=== PATIENT | female | born 1950 | race African-American/Black ===

== ENCOUNTER 2020-07-10 23:04 | Observation (INO) ==
[2020-07-10] MEDS ORDERED: SODIUM CHLORIDE 0.9% 1,000 ML IV STA (23:35)
[2020-07-10 23:44] LABS: Basophils % 0.3 % (0.0-0.8); Eosinophils % 0.3 % (0.00-10.9); Hematocrit 18.8 VOL% (35.7-47.0); Immature Granulocytes % 1.3 %; Immature Granulocytes Absolute 0.04 #; Lymphocytes # 0.3 10*3/uL (1.4-4.0); Mean Corpuscular HGB Conc 31.9 GM/DL (32-36); Mean Corpuscular Volume 89.5 FL (87-102); Mean Platelet Volume 11.2 FL (9.6-12.0); Monocytes % 5.5 % (1.7-12.7); Neutrophils % 83.6 % (38.7-73.9); Platelet Count 252 T/CUMM (130-400); Red Cell Distribution Width 14.2 % (9.3-17.3); White Blood Count 3.1 T/CUMM (4-12)
[2020-07-10 23:54] LABS: Albumin 1.4 G/DL (3.4-5.0); Bilirubin,Total 1.5 MG/DL (0.2-1.0); Calcium 8.9 MG/DL (8.5-10.1); Osmolality,Calculated 281.9 MOS/KG (273-304); Total Protein 6.8 G/DL (6.4-8.3)
[2020-07-11 00:06] LABS: Eosinophils 2 % (0-10); Hypochromasia 1+; Lymphocytes 9 % (20-55); Platelet Estimate Normal; Segmented Neutrophils 87 % (50-85); Total Cells Counted 100
[2020-07-11] MEDS ORDERED: ACETAMINOPHEN 325 MG TABLET PO PRN (00:53)
[2020-07-11] MEDS ORDERED: GLUCAGON 1 MG VIAL IM PRN ×2 (00:53)
[2020-07-11] MEDS ORDERED: DEXTROSE 50% 25 GM/50 ML VIAL IV PRN ×2 (00:53)
[2020-07-11] MEDS ORDERED: ONDANSETRON 4 MG/2 ML VIAL IV PRN (00:53)
[2020-07-11 00:54] LABS: Amorphous Crystals,Urine Occasional /HPF (Few); Apearance,Urine Slightly Hazy (Clear); Bacteria,Urine Occasional /HPF (Few); Bilirubin,Urine Negative (Negative); Blood, Urine Large mg/dL (Negative); Glucose,Urine (UA) Negative (Negative); Ketones,Urine Negative (Negative); Mucus,Urine Occasional /LPF (Occasional); Nitrite,Urine Negative (Negative); Protein,Urine Negative; RBC,Urine 172 /HPF (0-4); Squamous Epithelial Cell,Urine Occasional /HPF (0-10); Urine Color Amber (Yellow); Urine Specific Gravity 1.016 (1.001-1.035); WBC,Urine 12 /HPF (0-6)
[2020-07-11] MEDS ORDERED: SODIUM CHLORIDE 0.9% 1,000 ML IV PRN (00:58)
[2020-07-11] MEDS: INSULIN LISPRO 100 UNIT/ML SUBCUT SCH ×4 (09:24→20:22)
[2020-07-11 12:06] LABS: Hematocrit 26.4 VOL% (35.7-47.0); Hemoglobin 8.7 GM/DL (12.0-16.0)
[2020-07-11] MEDS: SODIUM CHLORIDE 0.9% 1,000 ML IV SCH ×2 (20:23)
[2020-07-11] MEDS: VANCOMYCIN 50 MG/ML 60 ML/BOTTLE PO SCH (23:14)
[2020-07-12] MEDS: VANCOMYCIN 50 MG/ML 60 ML/BOTTLE PO SCH ×4 (05:04→23:17)
[2020-07-12 05:56] LABS: Basophils % 0.6 % (0.0-0.8); Eosinophils % 0.3 % (0.00-10.9); Hematocrit 25.2 VOL% (35.7-47.0); Hemoglobin 8.2 GM/DL (12.0-16.0); Immature Granulocytes % 2.1 %; Immature Granulocytes Absolute 0.07 #; Lymphocytes # 0.4 10*3/uL (1.4-4.0); Lymphocytes % 10.7 % (21.3-54.2); Mean Corpuscular HGB Conc 32.5 GM/DL (32-36); Mean Corpuscular Volume 87.8 FL (87-102); Mean Platelet Volume 10.3 FL (9.6-12.0); Monocytes % 6.1 % (1.7-12.7); Neutrophils % 80.2 % (38.7-73.9); Platelet Count 237 T/CUMM (130-400); Red Blood Count 2.87 MC/CUMM (3.8-5.5); Red Cell Distribution Width 15.5 % (9.3-17.3); White Blood Count 3.3 T/CUMM (4-12)
[2020-07-12 06:13] LABS: Albumin 1.2 G/DL (3.4-5.0); Bilirubin,Total 1.2 MG/DL (0.2-1.0); Calcium 8.3 MG/DL (8.5-10.1)
[2020-07-12 06:23] LABS: Band Neutrophils 1 % (0-10); Lymphocytes 6 % (20-55); Platelet Estimate Adequate; Segmented Neutrophils 89 % (50-85); Total Cells Counted 100
[2020-07-12 06:24] LABS: Burr Cells Slight; Hypochromasia 1+; Microcytosis 1+; Ovalocytes Slight
[2020-07-12] MEDS: INSULIN LISPRO 100 UNIT/ML SUBCUT SCH ×4 (09:18→20:25)
[2020-07-12] MEDS: SODIUM CHLORIDE 0.9% 1,000 ML IV SCH (21:50)
[2020-07-13] MEDS: VANCOMYCIN 50 MG/ML 60 ML/BOTTLE PO SCH ×2 (05:58→13:32)
[2020-07-13] MEDS: INSULIN LISPRO 100 UNIT/ML SUBCUT SCH ×2 (09:54→13:29)
[2020-07-13 14:06] VITALS: BP 140/74
== END 2020-07-13 16:32 | disposition home health service (06) ==
LOC: EDUNIT# → EDBD → N.EDINP 23:04 → N.ED 23:04 → SUATTDRO 07-11 00:53 → N.4E 07-11 03:29
PROVIDERS: ADMIT Internal Medicine; ATTEND Internal Medicine

== ENCOUNTER 2020-08-24 16:12 | Inpatient (IN) ==
[2020-08-24 17:44] LABS: Basophils % 0.1 % (0.0-0.8); Eosinophils % 0.2 % (0.00-10.9); Immature Granulocytes % 1.4 %; Immature Granulocytes Absolute 0.22 #; Lymphocytes # 0.6 10*3/uL (1.4-4.0); Lymphocytes % 3.9 % (21.3-54.2); Mean Corpuscular HGB Conc 30.8 GM/DL (32-36); Mean Corpuscular Volume 95.6 FL (87-102); Mean Platelet Volume 9.4 FL (9.6-12.0); Monocytes % 3.8 % (1.7-12.7); NRBC # 0.03 10*3/uL; Neutrophils % 90.6 % (38.7-73.9); Platelet Count 454 T/CUMM (130-400); Red Blood Count 1.36 MC/CUMM (3.8-5.5); Red Cell Distribution Width 18.1 % (9.3-17.3)
[2020-08-24 18:01] LABS: Albumin 1.4 G/DL (3.4-5.0); Bilirubin,Total 1.3 MG/DL (0.2-1.0); Calcium 8.7 MG/DL (8.5-10.1); Osmolality,Calculated 292.5 MOS/KG (273-304); Total Protein 7.1 G/DL (6.4-8.3)
[2020-08-24 18:17] LABS: Bilirubin,Urine Negative (Negative); Blood, Urine Small mg/dL (Negative); Glucose,Urine (UA) Negative (Negative); Ketones,Urine Negative (Negative); Nitrite,Urine Negative (Negative); Protein,Urine 30 MG/DL; RBC,Urine 62 /HPF (0-4); Squamous Epithelial Cell,Urine Occasional /HPF (0-10); Urine Appearance CLOUDY (Clear); Urine Color Yellow (Yellow); Urine Specific Gravity 1.016 (1.001-1.035); Urine Urobilinogen < 2.0 EU/DL (0.2-1.0); WBC,Urine 3 /HPF (0-6)
[2020-08-24] MEDS ORDERED: ONDANSETRON 4 MG/2 ML VIAL IV STA (18:25)
[2020-08-24] MEDS ORDERED: SODIUM CHLORIDE 0.9% 1,000 ML IV STA (18:25)
[2020-08-24] MEDS ORDERED: PANTOPRAZOLE 40 MG VIAL IV STA (18:25)
[2020-08-24] MEDS ORDERED: cefTRIAXone 1,000 MG in SODIUM CHLORIDE 0.9% 100 ML IV STA (18:33)
[2020-08-24 19:13] LABS: Anisocytosis Slight; Hypochromasia 1+; Polychromasia Few
[2020-08-24 19:14] LABS: Platelet Estimate Adequate
[2020-08-24] MEDS ORDERED: ACETAMINOPHEN 325 MG TABLET PO PRN (20:37)
[2020-08-24] MEDS ORDERED: DEXTROSE 50% 25 GM/50 ML VIAL IV PRN ×2 (20:37)
[2020-08-24] MEDS ORDERED: ONDANSETRON 4 MG/2 ML VIAL IV PRN (20:37)
[2020-08-24] MEDS ORDERED: GLUCAGON 1 MG VIAL IM PRN ×2 (20:37)
[2020-08-24] MEDS ORDERED: SODIUM CHLORIDE 0.9% 1,000 ML IV PRN (20:46)
[2020-08-24] MEDS ORDERED: FUROSEMIDE 20 MG/2 ML VIAL IV PRN (20:46)
[2020-08-24] MEDS ORDERED: DIPHENOXYLATE/ATROPINE 2.5-0.025 MG TABLET PO PRN (20:51)
[2020-08-24] MEDS ORDERED: BRIMONIDINE/TIMOLOL OPH SOLN 5 ML BOTTLE BOTH EYES SCH (21:00)
[2020-08-24 23:35] LABS: Hematocrit 12.9 VOL% (35.7-47.0); Hemoglobin 3.9 GM/DL (12.0-16.0)
[2020-08-25] MEDS: INSULIN LISPRO 100 UNIT/ML SUBCUT SCH ×5 (03:03→20:45)
[2020-08-25] MEDS: SODIUM CHLORIDE 0.9% 1,000 ML IV SCH ×2 (05:36→22:56)
[2020-08-25 08:20] LABS: Basophils % 0.1 % (0.0-0.8); Eosinophils # 0.1 10*3/uL (0.0-0.87); Eosinophils % 0.5 % (0.00-10.9); Hematocrit 20.3 VOL% (35.7-47.0); Immature Granulocytes % 1.4 %; Immature Granulocytes Absolute 0.21 #; Lymphocytes # 1.5 10*3/uL (1.4-4.0); Lymphocytes % 9.7 % (21.3-54.2); Mean Corpuscular Volume 92.7 FL (87-102); Mean Platelet Volume 9.5 FL (9.6-12.0); Monocytes % 7.4 % (1.7-12.7); NRBC # 0.04 10*3/uL; Neutrophils % 80.9 % (38.7-73.9); Platelet Count 387 T/CUMM (130-400)
[2020-08-25 08:30] LABS: Hemoglobin 6.7 GM/DL (12.0-16.0); Red Blood Count 2.19 MC/CUMM (3.8-5.5)
[2020-08-25 08:45] LABS: Albumin 1.3 G/DL (3.4-5.0); Bilirubin,Total 1.8 MG/DL (0.2-1.0); Calcium 8.4 MG/DL (8.5-10.1); Osmolality,Calculated 290.2 MOS/KG (273-304); Total Protein 6.8 G/DL (6.4-8.3)
[2020-08-25] MEDS ORDERED: ATORVASTATIN 20 MG TABLET PO SCH (09:00)
[2020-08-25] MEDS ORDERED: BIMATOPROST 0.01% OPH SOLN 2.5 ML BOTTLE BOTH EYES SCH (09:00)
[2020-08-25] MEDS ORDERED: PANTOPRAZOLE 40 MG VIAL IV SCH (09:00)
[2020-08-25] MEDS: FAMOTIDINE 20 MG TABLET PO SCH (20:41)
[2020-08-25] MEDS ORDERED: cefTRIAXone 1,000 MG in SYRINGE 1 EACH IV SCH (21:00)
[2020-08-25 22:59] LABS: Hematocrit 28.7 VOL% (35.7-47.0)
[2020-08-25 23:05] LABS: Hemoglobin 9.1 GM/DL (12.0-16.0)
[2020-08-26 06:39] VITALS: BP 142/67
[2020-08-26 06:56] LABS: Basophils % 0.3 % (0.0-0.8); Eosinophils # 0.1 10*3/uL (0.0-0.87); Eosinophils % 0.9 % (0.00-10.9); Hematocrit 29.2 VOL% (35.7-47.0); Hemoglobin 9.3 GM/DL (12.0-16.0); Immature Granulocytes % 2.7 %; Immature Granulocytes Absolute 0.34 #; Lymphocytes # 1.4 10*3/uL (1.4-4.0); Lymphocytes % 10.6 % (21.3-54.2); Mean Corpuscular HGB Conc 31.8 GM/DL (32-36); Mean Corpuscular Volume 87.4 FL (87-102); Mean Platelet Volume 9.4 FL (9.6-12.0); Monocytes % 8.4 % (1.7-12.7); NRBC # 0.02 10*3/uL; Neutrophils % 77.1 % (38.7-73.9); Platelet Count 337 T/CUMM (130-400); Red Blood Count 3.34 MC/CUMM (3.8-5.5); Red Cell Distribution Width 19.3 % (9.3-17.3); White Blood Count 12.8 T/CUMM (4-12)
[2020-08-26 07:14] LABS: Albumin 1.3 G/DL (3.4-5.0); Bilirubin,Total 1.4 MG/DL (0.2-1.0); Calcium 8.3 MG/DL (8.5-10.1); Osmolality,Calculated 287.8 MOS/KG (273-304); Total Protein 6.6 G/DL (6.4-8.3)
[2020-08-26] MEDS: INSULIN LISPRO 100 UNIT/ML SUBCUT SCH ×2 (09:00→12:37)
[2020-08-26] MEDS: FAMOTIDINE 20 MG TABLET PO SCH (09:22)
== END 2020-08-26 16:05 | disposition home health service (06) | DRG 811 ==
LOC: EDBD → EDUNIT# → N.ED 16:12 → N.EDINP 20:37 → N.4E 22:18
PROVIDERS: ADMIT Internal Medicine; ATTEND Internal Medicine

== ENCOUNTER 2020-08-31 16:03 | Inpatient (IN) ==
[2020-08-31] MEDS ORDERED: LACTATED RINGERS 1,000 ML IV ONE (16:38)
[2020-08-31 16:45] LABS: Basophils # 0.1 10*3/uL (0.0-0.2); Basophils % 0.3 % (0.0-0.8); Eosinophils # 0.1 10*3/uL (0.0-0.87); Eosinophils % 0.3 % (0.00-10.9); Hematocrit 22.3 VOL% (35.7-47.0); Hemoglobin 7.1 GM/DL (12.0-16.0); Immature Granulocytes % 0.4 %; Immature Granulocytes Absolute 0.07 #; Lymphocytes # 1.3 10*3/uL (1.4-4.0); Lymphocytes % 8.1 % (21.3-54.2); Mean Corpuscular HGB Conc 31.8 GM/DL (32-36); Mean Corpuscular Volume 89.9 FL (87-102); Mean Platelet Volume 9.2 FL (9.6-12.0); Monocytes % 5.5 % (1.7-12.7); Neutrophils % 85.4 % (38.7-73.9); Platelet Count 445 T/CUMM (130-400); Red Blood Count 2.48 MC/CUMM (3.8-5.5); Red Cell Distribution Width 17.9 % (9.3-17.3); White Blood Count 16.1 T/CUMM (4-12)
[2020-08-31 16:59] LABS: PT Patient Result 10.9 SECS (9.8-11.9); Partial Thromboplastin Time 22.8 SECS (23.9-33.8)
[2020-08-31 17:11] LABS: Amorphous Crystals,Urine Occasional /HPF (Few); Bilirubin,Urine Negative (Negative); Blood, Urine Negative (Negative); Glucose,Urine (UA) Negative (Negative); Ketones,Urine Negative (Negative); Nitrite,Urine Negative (Negative); Protein,Urine 30 MG/DL; RBC,Urine 21 /HPF (0-4); Squamous Epithelial Cell,Urine Occasional /HPF (0-10); Urine Appearance Slightly Hazy (Clear); Urine Color Yellow (Yellow); Urine Specific Gravity 1.017 (1.001-1.035); Urine Urobilinogen < 2.0 EU/DL (0.2-1.0); WBC,Urine 2 /HPF (0-6)
[2020-08-31 17:38] LABS: Albumin 1.6 G/DL (3.4-5.0); Bilirubin,Total 1.4 MG/DL (0.2-1.0); Calcium 8.2 MG/DL (8.5-10.1); Osmolality,Calculated 290.8 MOS/KG (273-304); Total Protein 6.3 G/DL (6.4-8.3)
[2020-08-31] MEDS ORDERED: cefTRIAXone 1,000 MG in SODIUM CHLORIDE 0.9% 100 ML IV STA ×2 (19:20→19:49)
[2020-08-31] MEDS ORDERED: MORPHINE 4 MG/1 ML VIAL IV STA (19:24)
[2020-08-31] MEDS ORDERED: ONDANSETRON 4 MG/2 ML VIAL IV STA (19:24)
[2020-08-31] MEDS ORDERED: SODIUM CHLORIDE 0.9% 1,000 ML IV PRN (20:24)
[2020-08-31] MEDS ORDERED: guaiFENesin/DM ER 600-30 MG TABLET PO PRN (20:28)
[2020-08-31] MEDS ORDERED: diphenhydrAMINE CAP 25 MG CAPSULE PO PRN (20:28)
[2020-08-31] MEDS ORDERED: NICOTINE 21 MG/24 HR PATCH TRANSDERM PRN (20:28)
[2020-08-31] MEDS ORDERED: GLUCAGON 1 MG VIAL IM PRN (20:28)
[2020-08-31] MEDS ORDERED: DEXTROSE 50% 25 GM/50 ML VIAL IV PRN (20:28)
[2020-08-31] MEDS ORDERED: ACETAMINOPHEN 325 MG TABLET PO PRN (20:28)
[2020-08-31] MEDS ORDERED: hydrALAZINE 20 MG/1 ML VIAL IV PRN (20:28)
[2020-09-01 07:15] LABS: Basophils # 0.1 10*3/uL (0.0-0.2); Basophils % 0.4 % (0.0-0.8); Eosinophils # 0.1 10*3/uL (0.0-0.87); Eosinophils % 0.3 % (0.00-10.9); Hematocrit 30.1 VOL% (35.7-47.0); Immature Granulocytes % 0.6 %; Immature Granulocytes Absolute 0.12 #; Lymphocytes % 5.5 % (21.3-54.2); Mean Corpuscular HGB Conc 33.6 GM/DL (32-36); Mean Corpuscular Volume 86.5 FL (87-102); Monocytes % 6.5 % (1.7-12.7); Neutrophils % 86.7 % (38.7-73.9); Platelet Count 298 T/CUMM (130-400); Red Blood Count 3.48 MC/CUMM (3.8-5.5); Red Cell Distribution Width 16.9 % (9.3-17.3); White Blood Count 18.8 T/CUMM (4-12)
[2020-09-01 07:16] LABS: Hemoglobin 10.1 GM/DL (12.0-16.0)
[2020-09-01] MEDS ORDERED: MAGNESIUM SULF RIDER 4 GM in PREMIX 1 EACH IV PRN (08:08)
[2020-09-01] MEDS ORDERED: MAGNESIUM SULF RIDER 2 GM in PREMIX 1 EACH IV PRN (08:08)
[2020-09-01] MEDS ORDERED: fentaNYL 12 MCG/HR PATCH TRANSDERM SCH (09:30)
[2020-09-01] MEDS: MORPHINE 4 MG/1 ML VIAL IV PRN ×2 (16:39→20:53)
[2020-09-01] MEDS: MENTHOL/ZINC OXIDE OINT 71 GM JAR TOP SCH (20:11)
[2020-09-02 06:21] LABS: Hematocrit 24.8 VOL% (35.7-47.0); Hemoglobin 8.2 GM/DL (12.0-16.0)
[2020-09-02 06:36] LABS: Calcium 8.6 MG/DL (8.5-10.1); Osmolality,Calculated 287.7 MOS/KG (273-304)
[2020-09-02] MEDS: MORPHINE 4 MG/1 ML VIAL IV PRN (06:39)
[2020-09-02] MEDS ORDERED: SODIUM CHLORIDE 0.9% 1,000 ML IV PRN (09:21)
[2020-09-02] MEDS: MENTHOL/ZINC OXIDE OINT 71 GM JAR TOP SCH (09:23)
[2020-09-02] MEDS ORDERED: HEPARIN LOCK FLUSH 500 UNIT/5 ML SYRINGE IV ONE (14:14)
[2020-09-02 14:43] VITALS: BP 130/75
== END 2020-09-02 14:55 | disposition hospice, home (50) | DRG 394 ==
LOC: N.ED 16:03 → N.EDINP 20:28 → N.4E 22:21
PROVIDERS: ADMIT Internal Medicine; ATTEND Internal Medicine